=== PATIENT | male | born 1965 | race Caucasian/White ===

== ENCOUNTER 2018-09-27 07:07 | Day surgery (SDC) | payer OTHER, BC ==
[2018-09-27] MEDS ORDERED: LIDOCAINE 2% (SDV) 5 ML INJ (08:15)
[2018-09-27] MEDS ORDERED: PROPOFOL 60 ML (08:15)
== END 2018-09-27 09:57 | disposition home or self-care (01) ==
LOC: GIL 07:07
DX: Z12.11 Encounter for screening for malignant neoplasm of colon (principal); D12.8 Benign neoplasm of rectum; K57.30 Diverticulosis of large intestine without perforation or abscess without bleeding; K64.4 Residual hemorrhoidal skin tags; E03.9 Hypothyroidism, unspecified
CPT/HCPCS: 45380; 88305